=== PATIENT | male | born 1955 | race Caucasian/White ===

== ENCOUNTER → 2016-12-25 | Outpatient (CLI) | payer BC | END | disposition home or self-care (01) | LOC: GMAM 10:23 | PROVIDERS: ATTEND Family Medicine | DX: E03.9 Hypothyroidism, unspecified (principal) ==

== ENCOUNTER → 2017-07-22 | Outpatient (CLI) | payer BC | LOC: GMAM 11:36 | PROVIDERS: ATTEND Family Medicine | DX: E03.9 Hypothyroidism, unspecified (principal); Z12.5 Encounter for screening for malignant neoplasm of prostate ==

== ENCOUNTER → 2017-12-16 | Outpatient (CLI) | payer BC | LOC: GMAM 12:04 | PROVIDERS: ATTEND Family Medicine | DX: E03.9 Hypothyroidism, unspecified (principal) ==

== ENCOUNTER → 2017-12-19 | Outpatient (CLI) | payer BC | LOC: GMAM 10:54 | PROVIDERS: ATTEND Family Medicine | DX: R53.82 Chronic fatigue, unspecified (principal) ==

== ENCOUNTER → 2018-02-10 | Outpatient (CLI) | payer BC | LOC: GMAM 14:29 | PROVIDERS: ATTEND Family Medicine | DX: E55.9 Vitamin D deficiency, unspecified (principal) ==

== ENCOUNTER → 2018-03-19 | Outpatient (CLI) | payer BC | LOC: GMAM 16:47 | PROVIDERS: ATTEND Family Medicine | DX: L02.414 Cutaneous abscess of left upper limb (principal) ==

== ENCOUNTER → 2018-07-09 | Outpatient (CLI) | payer BC | LOC: GMAM 10:23 | PROVIDERS: ATTEND Family Medicine | DX: E03.9 Hypothyroidism, unspecified (principal); E55.9 Vitamin D deficiency, unspecified; Z12.5 Encounter for screening for malignant neoplasm of prostate ==

== ENCOUNTER → 2018-10-02 | Outpatient (CLI) | payer BC ==
--- NOTE | 2018-10-02 11:46 | RAD ---
EXAM DESCRIPTION: Fingers,Right CLINICAL HISTORY: 63 years Male, M79.644 COMPARISON: None. TECHNIQUE: 3 views of the right fourth digit were obtained. FINDINGS: Plate and screw fixation of the distal phalanx of the right fourth digit is identified. The visualized bones appear normal. No evidence of acute fracture or dislocation. The soft tissues appear normal. IMPRESSION: Intact plate and screw fixation of the distal phalanx of the right fourth digit. Electronically signed by: Nazia Sy MD 10/02/2018 11:43 AM CDT
== END ==
LOC: RAD 07:43
PROVIDERS: ATTEND Orthopaedic Surgery
DX: M79.644 Pain in right finger(s) (principal); Z87.81 Personal history of (healed) traumatic fracture

== ENCOUNTER → 2018-12-09 | Outpatient (CLI) | payer BC | LOC: GMAM 10:27 | PROVIDERS: ATTEND Family Medicine | DX: M62.81 Muscle weakness (generalized) (principal); I10 Essential (primary) hypertension; E03.9 Hypothyroidism, unspecified; I25.10 Atherosclerotic heart disease of native coronary artery without angina pectoris; E55.9 Vitamin D deficiency, unspecified ==

== ENCOUNTER → 2019-01-20 | Outpatient (CLI) | payer BC ==
--- NOTE | 2019-01-20 17:48 | MRI ---
EXAM DESCRIPTION: Lumbar Spine w/o Contrast : Magnetic Resonance Imaging. CLINICAL HISTORY: MUSCLE WEAKNESS COMPARISON: None. TECHNIQUE: Multiplanar, multiple standard sequences, non contrast MRI, lumbar spine. FINDINGS: L5-S1: The disc is well visualized on axial T2 series 501, image 3. Disc desiccation and minimal posterior disc space narrowing. Left posterior paracentral disc protrusion abutting the left ventral thecal sac and the descending left S1 nerve with narrowing of the left subarticular recess. Hyperintense T2 weighted annular fissure in the protruding disc. Bilaterally shortened pedicles AP canal diameter 9 mm. Minimal posterior flavum ligament thickening on the left with minimal facet arthrosis. Moderate to severe bilateral foraminal narrowing. Circumscribed hyperintense object inferior L5 vertebral body T1 and T2 sequences consistent with a hemangioma. A second hemangioma more posterior and to the left of midline. Also small hemangioma superior S1 endplate. L4-L5: Disc desiccation minimal disc space loss. Grade 1 anterolisthesis 3 mm. Bilateral hypertrophic facet arthrosis and flavum ligament thickening. Shortened pedicles. AP canal diameter 8 mm. Bilateral narrowing of the subarticular recesses. Moderate to severe narrowing of the left foramen. Right foraminal stenosis. L3-L4: Normal signal in the disc with disc space maintained. No disc bulging. Hypertrophic bilateral facet arthrosis and ligament thickening. Bilateral shortened pedicles. AP canal diameter 10 mm. Bilateral moderate foraminal narrowing more on the right. Circumscribed hyperintense T1 and T2 signal object posterior L2 vertebral body consistent with a hemangioma. L2-L3: Minimal disc space loss and disc desiccation. Tiny posterior disc bulge. Bilateral moderate facet hypertrophic arthrosis and posterior ligament thickening. Shortened pedicles. AP canal diameter 9 mm. Lateral left disc bulge; moderate left foraminal narrowing. Mild right foraminal narrowing. L1-L2: Disc desiccation and minimal disc space loss. Anterior disc bulge and endplate ridging. No posterior disc bulge. Moderate hypertrophic facet arthrosis and thickening of the ligaments with bilateral shortened pedicles. AP canal diameter 11 mm. Conus terminates at this level. Bilateral mild foraminal narrowing more on the left. Circumscribed hyperintense T1 and T2 signal lesion in the left T1 vertebral body consistent with a hemangioma. T12-L1: Normal signal in the disc with disc space preserved. Posterior elements unremarkable. Canal and foramina are patent. Normal signal in the distal cord. No scoliosis. Paravertebral soft tissues negative.. Cord normal signal and caliber. Heterogeneous marrow signal in the remaining vertebral bodies and the posterior elements. No abnormal marrow edema. Vertebral bodies are not compressed at any level. IMPRESSION: 1. Multiple levels of bilaterally shortened pedicles, hypertrophic facet arthrosis, posterior flavum ligament thickening, and canal and foraminal narrowing. Inhomogeneous marrow signal in multiple vertebral body hemangiomas. 2. Left posterior protrusion of the L5-S1 disc encroaching on the descending left S1 nerve root in the subarticular recess with mild left paracentral canal stenosis. Multifactorial moderate to severe bilateral foraminal narrowing. 3. Mild to moderate central canal stenosis with grade 1 anterolisthesis at L4-L5. Bilateral narrowing of the subarticular recesses. Right foraminal stenosis. Correlate for right L4 radiculopathy. 4. Borderline mild central canal stenosis at L3-L4 multifactorial. Bilateral moderate foraminal narrowing. 5. No disc bulging at L2-L3, but multifactorial mild central canal stenosis. Electronically signed by: Russell Ovalle MD 01/20/2019 5:47 PM CDT
== END ==
LOC: MRI 07:30
PROVIDERS: ATTEND Family Medicine
DX: M48.061 Spinal stenosis, lumbar region without neurogenic claudication (principal); M43.16 Spondylolisthesis, lumbar region; M51.26 Other intervertebral disc displacement, lumbar region; M62.81 Muscle weakness (generalized)

== ENCOUNTER → 2019-02-13 | Outpatient (CLI) | payer BC ==
--- NOTE | 2019-02-14 13:32 | MRI ---
EXAM DESCRIPTION: Thoracic Spine w/o Contrast: Magnetic Resonance Imaging. CLINICAL HISTORY: THORACIC BACK PAIN. Spinal stenosis. COMPARISON: MRI lumbar spine January 20, 2019. TECHNIQUE: Multiplanar, multiple standard sequences, non contrast MRI, thoracic spine. FINDINGS: C7-T1 disc desiccation. Disc bulging posteriorly impressing on the cord with borderline mild canal stenosis centrally. Bilateral foramina are patent. T6-T7 disc desiccation with disc space preserved and left paracentral bulge of the disc almost abutting the cord. Facets and ligaments negative with mild canal narrowing but bilateral neural foramina patent. Hyperintense T2 and STIR and T1 circumscribed hemangioma inferior T6 vertebral body. T7-T8 disc desiccation anterior bulging and endplate ridging. Minimal posterior bulge into the foramina bilaterally but not abutting the cord. Canal is patent. Minimal desiccation of the T8-T9 disc and disc space loss but no bulging. Disc space loss at T9-T10 with desiccated disc and minimal broad-based bulge but not abutting the cord. Mild canal narrowing. Bilateral facet hypertrophy and bilateral neural foraminal narrowing. Disc desiccation and minimal disc space loss at T2-T3 with mild posterior lateral disc bulge and mild narrowing of the canal and bilateral foramina. Disc desiccation and minimal disc space loss at T3-T4; the canal and foramina are patent. Circumscribed hyperintense lesion on all sequences left T10 vertebral body abutting the pedicle consistent with a hemangioma. Less well-defined hyperintense T1 and T2 object abutting the superior T7 endplate consistent with a hemangioma. Other discs with normal signal. Disc spaces are preserved. Canal and foramina are patent. No scoliosis. Facet joints are unremarkable. Conus termination level not seen. Cord with normal signal, no compression. Paravertebral soft tissues are unremarkable. Normal marrow signal in the remaining vertebral bodies and the posterior elements. Vertebral bodies are not compressed at any level. IMPRESSION: 1. Multiple levels of disc desiccation, minimal disc space loss, and canal and neural foraminal narrowing. See details in the findings. 2. Posterior bulge or focal protrusion of the desiccated C7-T1 disc with borderline mild central canal stenosis but no neural foraminal narrowing. Electronically signed by: Russell Ovalle MD 02/14/2019 1:31 PM CDT
== END ==
LOC: MRI 10:24
PROVIDERS: ATTEND Neurological Surgery
DX: M51.34 Other intervertebral disc degeneration, thoracic region (principal); M50.83 Other cervical disc disorders, cervicothoracic region

== ENCOUNTER 2019-03-23 13:16 | Emergency (ER) | payer BC ==
--- NOTE | 2019-03-23 14:06 | ED.PDOC ---
History of Present Illness - General Chief Complaint: Problem Stated Complaint: urinary incontinence Time Seen by Provider: 03/23/19 13:24 Additional Information: 64 y/o M presents to the ED c/o urinary incontinence onset 3 days ago. He had a lumbar fusion surgery 5 days ago and was d/c from the hospital 3 days ago and since that time has had issues with urinary incontinence. He cannot get to the restroom quick enough. He denies any pain, no stool incontinence or LE weakness/numbness. He called his surgeons office today and they told him to come to the ED for an MRI. His surgeon was Dr. Jannie Edouard and they surgery was done at a facility in [place]. He denies any fevers chills and has not noticed anything that he does to make sx better or worse. - History of Present Illness Allergies/Adverse Reactions: Allergies NO KNOWN ALLERGY Allergy (Verified 03/23/19 13:51) Home Medications: Ambulatory Orders Apixaban [Eliquis] 5 mg PO BID 03/23/19 Cholecalciferol [Vitamin D] 5,000 unit PO DAILY 03/23/19 Hydralazine HCl 25 mg PO DAILY 03/23/19 Labetalol HCl 200 mg PO BID 03/23/19 Levothyroxine Sodium 300 mcg PO DAILY 03/23/19 Lisinopril 40 mg PO DAILY 03/23/19 Rosuvastatin Calcium 10 mg PO DAILY 03/23/19 Spironolactone 25 mg PO DAILY 03/23/19 Review of Systems - Review of Systems Constitutional: Denies: chills, fever EENTM: Denies: blurred vision, double vision, nose congestion, throat pain Respiratory: Denies: cough, short of breath Cardiology: Denies: chest pain, palpitations Gastrointestinal/Abdominal: Denies: abdominal pain, diarrhea, nausea, vomiting Genitourinary: States: see HPI. Denies: dysuria, hematuria Musculoskeletal: Denies: back pain, muscle pain Skin: Denies: lesions, rash Neurological: Denies: headache, numbness, weakness Past Medical History (General) - Patient Medical History Hx Cardiac Disorders: - stent x1 Feb 2018 Hx Hypertension: Yes Hx Cancer: No Surgical History: other - Vaccination History Hx Tetanus, Diphtheria Vaccination: Yes Hx Influenza Vaccination: Yes Hx Pneumococcal Vaccination: Yes - Social History Hx Tobacco Use: No Hx Alcohol Use: No Hx Substance Use: No Hx Substance Use Treatment: No Hx Depression: No Family Medical History - Family History Mother Family History: Unknown Physical Exam - Physical Exam General Appearance: Alert, No apparent distress Eye Exam: bilateral normal Ears, Nose, Throat: normal ENT inspection, normal pharynx Neck: non-tender, full range of motion, normal inspection Respiratory: lungs clear, normal breath sounds, no respiratory distress Cardiovascular/Chest: normal peripheral pulses, regular rate, rhythm, no edema Peripheral Pulses: radial,right: 2+, radial,left: 2+, dorsalis pedis,right: 2+, dorsalis pedis,left: 2+ Gastrointestinal/Abdominal: normal bowel sounds, non tender, soft Rectal Exam: normal exam, normal rectal tone Back Exam: other - surgical dressing in place is clean, dry and intact Neurologic: no motor/sensory deficits, alert, normal mood/affect, oriented x 3, other - walks with a walker Skin Exam: normal color, warm/dry Progress - Progress Progress: 03/23/19 14:34 We are unable to do an MRI at this time. I attempted to contact pt surgeon to see where he would like the pt to go but was unabel to reach them. In the meantime the pt was able to reach the office and they have him set up for an out pt MRI this afternoon in [place]. At this time pt would like to leave to go straight to one of these facilities. He was given return precautions as needed. - Results/Orders Results/Orders: Laboratory Results - last 24 hr 03/23/19 14:05 Urine Color Dk yellow Urine Appearance Clear Urine pH 6.5 Ur Specific [place] 1.010 Urine Protein Negative Urine Glucose (UA) Negative Urine Ketones Negative Urine Blood Negative Urine Nitrite Negative Urine Bilirubin Negative Urine Urobilinogen 4.0 H Ur Leukocyte Esterase Negative Urine RBC 0 Urine WBC 1-3 Ur Epithelial Cells 1-3 Urine Bacteria 0 Urine Mucus Moderate Departure - Departure Clinical Impression: Urinary incontinence Qualifiers: Urinary Incontinence type: unspecified incontinence Qualified Code(s): R32 - Unspecified urinary incontinence Time of Disposition: 14:36 Disposition: Discharge to Home or Self Care Condition: Fair Departure Forms: ED Discharge - Pt. Copy, Patient Portal Self Enrollment Referrals: JANNIE EDOUARD [Referring] - 1-2 Days (As soon as possible) Home Medications: Ambulatory Orders Apixaban [Eliquis] 5 mg PO BID 03/23/19 Cholecalciferol [Vitamin D] 5,000 unit PO DAILY 03/23/19 Hydralazine HCl 25 mg PO DAILY 03/23/19 Labetalol HCl 200 mg PO BID 03/23/19 Levothyroxine Sodium 300 mcg PO DAILY 03/23/19 Lisinopril 40 mg PO DAILY 03/23/19 Rosuvastatin Calcium 10 mg PO DAILY 03/23/19 Spironolactone 25 mg PO DAILY 03/23/19 Additional Instructions: Follow up for out pt MRI as scheduled and with your surgeon. Return for any concerns.
[2019-03-23 20:05] VITALS: BP 129/86; TEMP 97.4; O2SAT 96
== END 2019-03-23 14:46 | disposition home or self-care (01) ==
LOC: ER 13:16
DX: R32 Unspecified urinary incontinence (principal); I10 Essential (primary) hypertension; I51.9 Heart disease, unspecified; Z98.1 Arthrodesis status; Z95.5 Presence of coronary angioplasty implant and graft; Z79.899 Other long term (current) drug therapy

== ENCOUNTER → 2019-04-01 | Outpatient (CLI) | payer BC ==
--- NOTE | 2019-04-01 10:47 | MRI ---
EXAM DESCRIPTION: Lumbar Spine w/o Contrast : Magnetic Resonance Imaging. CLINICAL HISTORY: Spondylolisthesis, lumbar region one week post lumbar fusion. COMPARISON: MRI lumbar spine presurgical [address] scan lumbar spine on this visit. TECHNIQUE: Multiplanar, multiple standard sequences, non contrast MRI, lumbar spine. FINDINGS: L5-S1: The disc is well visualized on axial T2 series 501, image 3. Disc desiccated with decreased disc space. Posterior 5 mm protrusion of the disc is stable with effacement of the left subarticular recess and displacement of the left S1 nerve. Hyperintense T2-weighted annular fissure in the disc protrusion. This is stable. Bilateral shortened pedicles. 8 mm left paracentral canal stenosis also stable. Bilateral moderate foraminal narrowing more narrowing on the left. Hemangioma posterior L5 vertebral body. Stable since the prior study. Bilateral L4-L5 transpedicular fusion with unilateral connecting rods and placement of intervertebral cage in the disc space. Anterior retainer with single screw anchor in the inferior L4 endplate. Edema in the disc space. Marrow edema in the adjacent endplates and minimally extending to the anterior L5 subcortical bone. Posterior right partial laminectomy with decompression and postoperative soft tissue edema. Anterior listhesis 2-3 mm stable. AP thecal sac diameter 10 mm. AP canal diameter 9.7 mm at the level of the superior L5 endplate. Bilateral advanced hypertrophic arthrosis of the facets and ligament thickening more left than right. Soft tissue edema anterior to the disc space and also abutting the left anterior and lateral disc space. Bilateral pedicle shortening. Bilateral narrowing of the subarticular recesses. No epidural cyst or fluid collection. Right foraminal stenosis and moderate to severe left foraminal narrowing. L3-L4: Normal signal in the disc with disc space maintained. Mild bilateral hypertrophic facet arthrosis and ligament thickening. Bilateral shortened pedicles. AP canal diameter 10 mm. Moderate bilateral foraminal narrowing stable. Stable hemangioma posterior right vertebral body. L2-L3: Disc desiccation and minimal disc space loss. Tiny posterior bulge. Hypertrophic facet arthrosis and ligament thickening bilaterally with shortened pedicles bilaterally. AP canal diameter 9 mm. Disc bulge and bilateral foramina more on the left which is moderately narrowed. Hyperintense T2 annular fissure far left lateral. Stable since the prior study. L1-L2: Disc desiccation and disc space loss. Bilateral shortened pedicles. Bilateral mild hypertrophic facet arthrosis and ligament thickening. AP canal diameter 12 mm. Conus terminates at this level. Bilateral foramina are patent. Stable since the prior study. Stable hemangioma left L1 vertebral body. T12-L1: Normal signal in the disc with no disc bulge. Bilateral hypertrophic facet arthrosis and mild ligament thickening. Bilateral shortened pedicles. Mild canal narrowing. Bilateral foramina are patent. Stable since the prior study. No scoliosis. Paravertebral soft tissues unremarkable at other levels compared to the recent surgical site.. Distal cord normal signal and caliber. Normal marrow signal in the remaining vertebral bodies and the posterior elements. Vertebral bodies are not compressed at any level. IMPRESSION: 1. 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 2. Posterior transpedicular spinal fusion at L4-L5 since the prior study with anterior retainer and interbody fusion device also introduced. No fluid collection or cyst in the epidural space or foramina. Soft tissue edema anterior to this space and also abutting the anterolateral lateral left lateral disc space. Postsurgical changes and soft tissue edema abutting the partial right laminectomy. Stable right foraminal stenosis. 3. Stable left posterior L5-S1 disc herniation impressing on the thecal sac with left paracentral canal stenosis. Also left subarticular recess stenosis with compromise of the descending left S1 nerve root. Stable since the prior study. 4. Multifactorial mild central canal stenosis at L2-L3. Left intraforaminal disc bulge and far lateral annular fissure with moderate narrowing of the foramen. Stable since the prior study. 5. Please refer to noncontrast lumbar spine CT scan and report on this visit. Electronically signed by: Russell Ovalle MD 04/01/2019 10:46 AM CDT
--- NOTE | 2019-04-01 11:25 | CT ---
EXAM DESCRIPTION: Lumbar Spine: Computed Tomography. CLINICAL HISTORY: 64 years Male Postlaminectomy syndrome, not elsewhere classified COMPARISON: None Available. TECHNIQUE: Spiral, axial 2.5 x 2.5 mm scans through the cervical spine without contrast. Coronal and sagittal 2.0 mm Reconstructions. Axial 2.5 mm bone algorithm reconstructions. Total Exam DLP: 640.71 mGy-cm. This exam was performed according to our departmental dose-optimization program which includes automated exposure control, adjustment of the mA and/or kV according to patient size and/or use of iterative reconstruction technique; to reduce radiation dose to as low as reasonably achievable (ALARA). FINDINGS: L4-L5: posterior transpedicular fusion construct with unilateral connecting rods. Interbody fusion device with anterior disc space retainer and single fixation screw in the inferior L4 vertebral body. Customary position. No bony fractures around the hardware. No abnormal bone density in the canal or foramina. 3 mm grade 1 anterolisthesis L4-L5. Bilateral advanced hypertrophic facet arthrosis. Bilateral L4 and L5 pars interarticulares are intact. Shortening of the bilateral pedicles. Stenosis of the bilateral subarticular recesses, impressing on the bilateral descending L5 nerves. Borderline bony stenosis of the bilateral foramina with no encroachment by the L4 pedicles. L5-S1: Disc space loss posterior with no posterior endplate spurs and protruding disc impressing on the left ventral thecal sac and descending left S1 nerve with left paracentral canal stenosis. Left foraminal stenosis. Mild bilateral facet arthrosis and hypertrophy. Bilateral marginal spurs and sclerosis on the anterior SI joint more right than left. L3-L4: Posterior bulge of the disc. Disc space maintained. Bilateral shortened pedicles. Bilateral hypertrophic facet arthrosis and ligament thickening. Mild canal stenosis.. Moderate to severe left foraminal narrowing and right foraminal stenosis. Bilateral subarticular recess narrowing. L2-L3: Disc space loss with bulging of the disc into the canal and bilateral foramina. Bilateral shortened pedicles. Bilateral hypertrophic facet arthrosis and ligament thickening with canal stenosis mild. L1-L2: Disc space narrowing with hypertrophic endplate changes to the left of midline. No significant disc bulge into the canal. Bilateral shortened pedicles. Bilateral hypertrophic facet arthrosis and ligament thickening. Moderate canal and foraminal narrowing. IMPRESSION: 1. Status post posterior fusion construct bilaterally L4-L5 with bilateral transpedicular screws and unilateral connecting rods. Interbody fusion device with anterior disc space retainer. Customary positioning. No bony complications around the hardware. No fractures. 3 mm grade 1 anterolisthesis L4-L5. Bilateral L4 and L5 pars interarticulares intact. Advanced hypertrophic bilateral facet arthrosis, and bilateral subarticular recess stenosis. No abnormal radiodense objects in the canal or foramina. 2. No fractures or radiodense loose bodies in the canal or foramina at other levels. Please see images and report from noncontrast MRI lumbar spine scan today. Electronically signed by: Russell Ovalle MD 04/01/2019 11:23 AM CDT
== END ==
LOC: MRI 08:33
PROVIDERS: ATTEND Orthopaedic Surgery Orthopaedic Surgery of the Spine
DX: M96.1 Postlaminectomy syndrome, not elsewhere classified (principal); M43.16 Spondylolisthesis, lumbar region; M48.061 Spinal stenosis, lumbar region without neurogenic claudication; M47.27 Other spondylosis with radiculopathy, lumbosacral region; M51.17 Intervertebral disc disorders with radiculopathy, lumbosacral region; Z98.1 Arthrodesis status

== ENCOUNTER → 2019-05-05 | Outpatient (CLI) | payer BC | LOC: GMAM 11:27 | PROVIDERS: ATTEND Family Medicine | DX: Z01.812 Encounter for preprocedural laboratory examination (principal) ==

== ENCOUNTER → 2019-05-07 | Outpatient (CLI) | payer BC ==
--- NOTE | 2019-05-07 13:34 | CT ---
Study: CT Chest. Indication: SOLITARY PULMONARY NODULE Technique: CT imaging of the chest obtained after intravenous administration of contrast. This exam was performed according to our departmental dose-optimization program, which includes automated exposure control, adjustment of the mA and/or kV according to patient size and/or use of iterative reconstruction technique. Comparison: Radiographs May 05, 2019. Findings: Atherosclerotic vessels and coronary arteries. Mild cardiomegaly. No pathologically enlarged lymphadenopathy. Degenerative changes of the spine noted. No consolidation, pleural effusion, otherwise, or pulmonary masses nodule. Impression: Clear lungs without pulmonary mass/nodule. Atherosclerosis. Mild cardiomegaly. Electronically signed by: Ever Rivera MD 05/07/2019 1:32 PM [employer]IST
== END ==
LOC: CT 07:54
PROVIDERS: ATTEND Family Medicine
DX: R91.1 Solitary pulmonary nodule (principal); I70.90 Unspecified atherosclerosis; I51.7 Cardiomegaly

== ENCOUNTER → 2019-07-09 | Outpatient (CLI) | payer BC | LOC: GMAM 14:35 | PROVIDERS: ATTEND Family Medicine | DX: K90.0 Celiac disease (principal) ==

== ENCOUNTER → 2019-07-16 | Outpatient (CLI) | payer BC | LOC: GMAM 14:27 | PROVIDERS: ATTEND Family Medicine | DX: K90.0 Celiac disease (principal) ==

== ENCOUNTER → 2020-01-15 | Outpatient (CLI) | payer BC | LOC: GMAM 10:34 | PROVIDERS: ATTEND Family Medicine | DX: K90.0 Celiac disease (principal); E03.9 Hypothyroidism, unspecified; E55.9 Vitamin D deficiency, unspecified; I10 Essential (primary) hypertension; E78.2 Mixed hyperlipidemia ==

== ENCOUNTER → 2020-02-23 | Outpatient (CLI) | payer BC | LOC: GMAM 10:45 | PROVIDERS: ATTEND Family Medicine | DX: R53.82 Chronic fatigue, unspecified (principal); Z12.5 Encounter for screening for malignant neoplasm of prostate ==

== ENCOUNTER → 2020-03-03 | Outpatient (CLI) | payer BC ==
--- NOTE | 2020-03-04 09:54 | MRI ---
EXAM DESCRIPTION: Brain w/oContrast CLINICAL HISTORY: BENIGN NEOPLASM OF PITUITARY COMPARISON: CT head March 26, 2014. MRI brain January 29, 2014. TECHNIQUE: Multiplanar, multi sequence MR images of the head are obtained without IV gadolinium contrast using standard imaging protocol. Images are mildly degraded by patient motion artifact. FINDINGS: The midline structures are not displaced. Sulci are age appropriate. The lateral, third, and fourth ventricles are normal in size, shape, and anatomic positioning. Normal beasley-white differentiation is seen. Normal flow voids are seen in the major intracranial vessels including the dural venous sinuses. There is no evidence of mass, mass effect, hydrocephalus, or acute intracranial hemorrhage. No abnormal extra-axial fluid collections are seen. Mild scattered foci of increased FLAIR/T2 signal are seen in the periventricular white matter and white matter of the centrum semiovale. No diffusion restriction is seen. Focal areas of calcification superior to the left parietal lobe and along the left posterior superior falx are stable in size and appearance compared to previous CT and MR imaging. Gradient echo images show no abnormal signal. Symmetry of the pituitary gland with more prominent pituitary tissue in the right aspect of the pituitary fossae is again seen.. The tiny 3 mm increased T2 and decreased T1 signal cyst posterior to the pituitary gland seen on previous exam measures approximately 2.5 mm on today's exam. The pituitary stalk is midline. Visualized paranasal sinuses are unremarkable. The visualized orbits and mastoid air cells are unremarkable. Calcification along the superior falx in the parietal region and superior to the left parietal lobe has a similar appearance to previous exam. IMPRESSION: Asymmetric appearance of the pituitary gland is a nonspecific finding and appears similar to previous exam. Small 2.5 mm cyst in the posterior aspect of the pituitary gland is stable to slightly smaller than previous exam. Evaluation for pituitary microadenoma is limited without IV gadolinium contrast. Age-appropriate atrophy with mild old small vessel ischemic type changes are similar to previous exam. Electronically signed by: Reuben Hancock MD 03/04/2020 9:52 AM CDT
== END ==
LOC: MRI 12:42
PROVIDERS: ATTEND Family Medicine
DX: D35.2 Benign neoplasm of pituitary gland (principal); E23.6 Other disorders of pituitary gland; G31.1 Senile degeneration of brain, not elsewhere classified

== ENCOUNTER → 2020-03-07 | Outpatient (CLI) | payer BC | LOC: GMAM 14:08 | PROVIDERS: ATTEND Family Medicine | DX: R94.6 Abnormal results of thyroid function studies (principal) ==

== ENCOUNTER → 2020-03-18 | Outpatient (CLI) | payer BC ==
--- NOTE | 2020-03-19 21:26 | MRI ---
EXAM DESCRIPTION: Brain w/wo Contrast: Magnetic Resonance Imaging. CLINICAL HISTORY: 65 years Male BENIGN NEOPLASM OF PITUITARY GLAND COMPARISON: MRI scan of the pituitary gland without gadolinium IV contrast March 03. MRI scan of the pituitary gland with and without gadolinium IV contrast January 2014. TECHNIQUE: Multiplanar, high-field MRI, multiple conventional sequences, without and with gadolinium IV contrast. No adverse reactions. Multiple axial diffusion sequences. FINDINGS: Pituitary gland occupies more of the right sella than the left. Decreased contrast enhancement in a 3.0 x 2.5 mm nodule, coronal plane, on the right anterior aspect of the gland. 4.5 mm in the AP axis. No displacement of the infundibulum with normal enhancement. Stable 2.5 mm cyst in the posterior gland. The gland does not expand beyond the sella. No mass in the suprasellar cistern. No mass in the optic chiasm or displacement of the optic tracts and optic nerves which also demonstrated normal enhancement. Hyperintense foci of bilateral FLAIR and T2-weighted signal in the periventricular white matter and beasley-white matter junctions of the cerebral hemispheres. . Normal contrast enhancement. No hemorrhage, no cerebral edema, no mass-effect. Sagittal hyperintense FLAIR lesion abutting the left occipital lobe at the vertex without enhancement stable. Focal hyperintense signal in the posterior right basal ganglia. No hemorrhage, no cerebral edema, no mass-effect. Normal contrast enhancement. Normal signal in the brainstem and cerebellar hemispheres. No hemorrhage, no cerebral edema, no mass-effect. Normal contrast enhancement. Concordance of the diffusion and non-diffusion sequences with no evidence of acute or subacute infarction. Cortical sulci, basilar cisterns and other CSF spaces, and the subdural spaces are physiologic for patient's age.. Ventricles are minimally prominent but not the temporal horns. Stable since the prior study. No effacement or displacement. No midline shift. No extra-axial hemorrhage. Normal contrast enhancement. IACs are symmetric bilaterally. No fluid in the mastoid air cells. No mass effect in the bilateral Cerebellopontine angles. Normal contrast enhancement. Base of the cerebellar tonsils is at the level of the foramen magnum. Coronal signal in the paranasal sinuses. The bony calvarium is intact. IMPRESSION: 1. Probable pituitary adenoma anterior right lateral pituitary gland maximum diameter 4.5 mm in the AP axis stable since the prior study. Stable cyst in the posterior pituitary gland. 2. Age-related changes and cerebral microvascular disease has slightly progressed since the prior study. No extra-axial hemorrhage or fluid. No intra-axial hemorrhage mass effect or cerebral edema. Normal contrast enhancement. Electronically signed by: Russell Ovalle MD 03/19/2020 9:25 PM CDT
== END ==
LOC: MRI 13:00
PROVIDERS: ATTEND Family Medicine
DX: Z01.812 Encounter for preprocedural laboratory examination (principal); D35.2 Benign neoplasm of pituitary gland; E23.6 Other disorders of pituitary gland; G31.1 Senile degeneration of brain, not elsewhere classified; I67.9 Cerebrovascular disease, unspecified

== ENCOUNTER → 2020-04-18 | Outpatient (CLI) | payer BC | LOC: GMAM 14:43 | PROVIDERS: ATTEND Family Medicine | DX: R94.6 Abnormal results of thyroid function studies (principal) ==